=== PATIENT | female | born 1985 | race African-American/Black ===

== ENCOUNTER 2023-07-31 16:10 | Outpatient (CLI) | payer SELFPAY ==
[~2023-07-31] VITALS: Ht 162.6 cm; Wt 91.8 kg
[2023-07-31 16:26] VITALS: BP 124/69; O2SAT 98
== END 2023-07-31 17:55 | disposition home or self-care (01) ==
LOC: M LDO 16:10
PROVIDERS: ATTEND Advanced Practice Midwife
DX: O26.892 Other specified pregnancy related conditions, second trimester (principal); R10.2 Pelvic and perineal pain; Z3A.26 26 weeks gestation of pregnancy; O32.1XX0 Maternal care for breech presentation, not applicable or unspecified; O09.522 Supervision of elderly multigravida, second trimester; O09.32 Supervision of pregnancy with insufficient antenatal care, second trimester
CPT/HCPCS: 59025; 76815; G0463

== ENCOUNTER 2024-09-21 09:26 | Emergency (ER) | payer OTHER ==
[~2024-09-21] VITALS: Ht 162.6 cm; Wt 95.7 kg
[2024-09-21] MEDS ORDERED: AMOX875T2 PO (12:38)
[2024-09-21 12:43] VITALS: BP 123/86; TEMP 97.9; O2SAT 100
== END 2024-09-21 12:44 | disposition home or self-care (01) ==
LOC: M ED 09:26
DX: K08.89 Other specified disorders of teeth and supporting structures (principal); R68.84 Jaw pain; Z79.2 Long term (current) use of antibiotics